=== PATIENT | male | born 1960 | race African-American/Black ===

== ENCOUNTER 2017-04-01 11:34 | Observation (INO) ==
[2017-04-01 14:23] LABS: Basophils % 0.3 % (0.0-0.8); Eosinophils # 0.1 10*3/uL (0.0-0.87); Eosinophils % 0.8 % (0.00-10.9); Hematocrit 38.6 VOL% (42.0-52.0); Hemoglobin 13.3 GM/DL (14.0-18.0); Immature Granulocytes % 0.8 %; Immature Granulocytes Absolute 0.09 #; Lymphocytes # 1.9 10*3/uL (1.4-4.0); Lymphocytes % 17.4 % (21.2-54.2); Mean Corpuscular HGB Conc 34.5 GM/DL (32-36); Mean Corpuscular Hemoglobin 31 PG (27-34); Mean Platelet Volume 10.6 FL (9.6-12.0); Monocytes # 1.1 10*3/uL (0.11-0.8); Monocytes % 9.8 % (1.7-12.7); Neutrophils # 7.7 10*3/uL (1.4-7.4); Neutrophils % 70.9 % (38.7-73.9); Platelet Count 178 T/CUMM (130-400); Red Blood Count 4.24 MC/CUMM (3.8-5.5); Red Cell Distribution Width 13.6 % (9.3-17.3); White Blood Count 10.8 T/CUMM (4-12)
[2017-04-01 14:47] LABS: Alanine Aminotransferase 31 U/L (16-61); Albumin 4.2 G/DL (3.4-5.0); Alkaline Phosphatase 107 U/L (45-117); Aspartate Amino Transferase 14 U/L (0-37); Bilirubin,Total < 0.39 MG/DL (0.2-1.0); Blood Urea Nitrogen 18 MG/DL (7-18); Calcium 9.3 MG/DL (8.5-10.1); Glucose 188 MG/DL (74-106); Osmolality,Calculated 285.4 MOS/KG (273-304); Sodium 140 MMOL/L (136-145); Total Protein 8.1 G/DL (6.4-8.3)
[2017-04-01 14:48] LABS: Troponin I Only < 0.015 NG/ML (0.00-0.045)
[2017-04-01] MEDS ORDERED: NICOTINE 21 MG/24 HR PATCH TRANSDERM PRN (17:46)
[2017-04-01] MEDS ORDERED: ACETAMINOPHEN 325 MG TABLET PO PRN (17:46)
[2017-04-01] MEDS ORDERED: MORPHINE 2 MG/1 ML SYRINGE IV PRN (17:46)
[2017-04-01] MEDS ORDERED: GLUCAGON 1 MG VIAL IM PRN (17:51)
[2017-04-01] MEDS ORDERED: ONDANSETRON 4 MG/2 ML VIAL IV PRN (17:51)
[2017-04-01] MEDS ORDERED: DEXTROSE 50% 25 GM/50 ML VIAL IV PRN (17:51)
[2017-04-01 18:27] LABS: Magnesium 1.5 MG/DL (1.8-2.4); Thyroid Stimulating Hormone 0.711 uIU/ml (0.358-3.74)
[2017-04-01] MEDS ORDERED: QUEtiapine 100 MG TABLET PO SCH ×2 (21:00)
[2017-04-01] MEDS ORDERED: FLUVOXAMINE MALEATE 100 MG PO SCH (21:00)
[2017-04-01] MEDS ORDERED: ATORVASTATIN 20 MG TABLET PO SCH (21:00)
[2017-04-01] MEDS: GABAPENTIN 100 MG CAPSULE PO SCH (21:22)
[2017-04-01] MEDS: MIRTAZAPINE 30 MG TABLET PO SCH (21:23)
[2017-04-01] MEDS: metFORMIN 500 MG TABLET PO SCH (21:23)
[2017-04-01] MEDS: QUEtiapine 100 MG TABLET PO SCH (21:23)
[2017-04-01] MEDS: cloNIDine 0.1 MG TABLET PO SCH (21:23)
[2017-04-01] MEDS: DOCUSATE SODIUM 100 MG CAPSULE PO SCH (21:23)
[2017-04-01] MEDS: CARVEDILOL 12.5 MG TABLET PO SCH (21:23)
[2017-04-01] MEDS: METOPROLOL SUCCINATE XL 100 MG TABLET PO SCH (21:23)
[2017-04-01] MEDS: buPROPion SR 150 MG TABLET PO SCH (21:23)
[2017-04-01] MEDS: INSULIN LISPRO 100 UNIT/ML SUBCUT SCH (22:30)
[2017-04-01] MEDS: POLYETHYLENE GLYCOL POWDER 17 GM PACK PO SCH (22:30)
[2017-04-02 01:17] LABS: Basophils % 0.2 % (0.0-0.8); Eosinophils # 0.1 10*3/uL (0.0-0.87); Eosinophils % 1.2 % (0.00-10.9); Hematocrit 32.3 VOL% (42.0-52.0); Hemoglobin 11.1 GM/DL (14.0-18.0); Immature Granulocytes % 0.5 %; Immature Granulocytes Absolute 0.05 #; Lymphocytes # 1.9 10*3/uL (1.4-4.0); Lymphocytes % 19.9 % (21.2-54.2); Mean Corpuscular HGB Conc 34.4 GM/DL (32-36); Mean Corpuscular Hemoglobin 31 PG (27-34); Mean Platelet Volume 11.1 FL (9.6-12.0); Monocytes # 1.1 10*3/uL (0.11-0.8); Neutrophils # 6.5 10*3/uL (1.4-7.4); Neutrophils % 67.2 % (38.7-73.9); Platelet Count 159 T/CUMM (130-400); Red Blood Count 3.55 MC/CUMM (3.8-5.5); Red Cell Distribution Width 13.4 % (9.3-17.3); White Blood Count 9.6 T/CUMM (4-12)
[2017-04-02 01:44] LABS: Calcium 8.6 MG/DL (8.5-10.1); Potassium 3.6 MMOL/L (3.5-5.1); Risk Ratio 2.42; VLDL CHOLESTEROL 15.8 MG/DL
[2017-04-02] MEDS ORDERED: MAGNESIUM SULF RIDER 2 GM in PREMIX 1 EACH IV PRN (09:28)
[2017-04-02] MEDS ORDERED: MAGNESIUM SULF RIDER 4 GM in PREMIX 1 EACH IV PRN (09:28)
[2017-04-02] MEDS: metFORMIN 500 MG TABLET PO SCH ×2 (10:13→21:16)
[2017-04-02] MEDS: amLODIPine 10 MG TABLET PO SCH (10:14)
[2017-04-02] MEDS: DULoxetine 30 MG CAPSULE PO SCH (10:14)
[2017-04-02] MEDS: buPROPion SR 150 MG TABLET PO SCH ×2 (10:14→21:16)
[2017-04-02] MEDS: DOCUSATE SODIUM 100 MG CAPSULE PO SCH ×2 (10:14→21:16)
[2017-04-02] MEDS: PANTOPRAZOLE 40 MG TABLET PO SCH (10:15)
[2017-04-02] MEDS: cloNIDine 0.1 MG TABLET PO SCH ×3 (10:15→21:17)
[2017-04-02] MEDS: QUEtiapine 100 MG TABLET PO SCH ×3 (10:15→21:17)
[2017-04-02] MEDS: POLYETHYLENE GLYCOL POWDER 17 GM PACK PO SCH ×2 (10:15→21:19)
[2017-04-02] MEDS: CARVEDILOL 12.5 MG TABLET PO SCH (10:15)
[2017-04-02] MEDS: GABAPENTIN 100 MG CAPSULE PO SCH ×3 (10:15→21:16)
[2017-04-02] MEDS: INSULIN LISPRO 100 UNIT/ML SUBCUT SCH ×4 (10:16→21:19)
[2017-04-02] MEDS ORDERED: FUROSEMIDE 40 MG/4 ML VIAL IV ONE (15:04)
[2017-04-02] MEDS ORDERED: NITROGLYCERIN SL 0.4 MG TABLET SL PRN (15:30)
[2017-04-02] MEDS: MIRTAZAPINE 30 MG TABLET PO SCH (21:16)
[2017-04-02] MEDS: ATORVASTATIN 80 MG TABLET PO SCH (21:17)
[2017-04-02] MEDS: METOPROLOL SUCCINATE XL 100 MG TABLET PO SCH (21:17)
[2017-04-03 06:36] LABS: Basophils % 0.5 % (0.0-0.8); Eosinophils # 0.2 10*3/uL (0.0-0.87); Eosinophils % 1.8 % (0.00-10.9); Hematocrit 33.4 VOL% (42.0-52.0); Hemoglobin 11.3 GM/DL (14.0-18.0); Immature Granulocytes % 0.8 %; Immature Granulocytes Absolute 0.07 #; Lymphocytes # 2.2 10*3/uL (1.4-4.0); Lymphocytes % 25.7 % (21.2-54.2); Mean Corpuscular HGB Conc 33.8 GM/DL (32-36); Mean Corpuscular Hemoglobin 31 PG (27-34); Mean Platelet Volume 10.4 FL (9.6-12.0); Monocytes # 1.1 10*3/uL (0.11-0.8); Monocytes % 13.5 % (1.7-12.7); Neutrophils # 4.8 10*3/uL (1.4-7.4); Neutrophils % 57.7 % (38.7-73.9); Platelet Count 161 T/CUMM (130-400); Red Blood Count 3.63 MC/CUMM (3.8-5.5); Red Cell Distribution Width 13.5 % (9.3-17.3); White Blood Count 8.4 T/CUMM (4-12)
[2017-04-03 07:03] LABS: Calcium 8.4 MG/DL (8.5-10.1); Osmolality,Calculated 287.1 MOS/KG (273-304); Potassium 3.9 MMOL/L (3.5-5.1)
[2017-04-03 07:07] LABS: Calcium 8.4 MG/DL (8.5-10.1); Magnesium 1.3 MG/DL (1.8-2.4); Osmolality,Calculated 287.1 MOS/KG (273-304); Potassium 3.9 MMOL/L (3.5-5.1); Risk Ratio 2.29; VLDL CHOLESTEROL 17.8 MG/DL
[2017-04-03] MEDS: INSULIN LISPRO 100 UNIT/ML SUBCUT SCH ×4 (08:43→22:07)
[2017-04-03] MEDS: QUEtiapine 100 MG TABLET PO SCH ×3 (08:44→22:06)
[2017-04-03] MEDS: ASPIRIN EC 81 MG TABLET PO SCH (08:44)
[2017-04-03] MEDS: GABAPENTIN 100 MG CAPSULE PO SCH ×3 (08:45→22:04)
[2017-04-03] MEDS: PANTOPRAZOLE 40 MG TABLET PO SCH (08:45)
[2017-04-03] MEDS: DULoxetine 30 MG CAPSULE PO SCH (08:45)
[2017-04-03] MEDS: cloNIDine 0.1 MG TABLET PO SCH (08:45)
[2017-04-03] MEDS: FUROSEMIDE 40 MG TABLET PO SCH (08:45)
[2017-04-03] MEDS: metFORMIN 500 MG TABLET PO SCH (08:45)
[2017-04-03] MEDS: amLODIPine 10 MG TABLET PO SCH (08:45)
[2017-04-03] MEDS: DOCUSATE SODIUM 100 MG CAPSULE PO SCH ×2 (08:46→22:06)
[2017-04-03] MEDS: POLYETHYLENE GLYCOL POWDER 17 GM PACK PO SCH ×2 (08:46→22:09)
[2017-04-03] MEDS: buPROPion SR 150 MG TABLET PO SCH ×2 (08:55→22:03)
[2017-04-03] MEDS ORDERED: LISINOPRIL 5 MG TABLET PO SCH (09:00)
[2017-04-03] MEDS ORDERED: MAGNESIUM SULF RIDER 2 GM in PREMIX 1 EACH IV ONE (15:06)
[2017-04-03] MEDS ORDERED: hydrALAZINE 25 MG TABLET PO SCH (21:00)
[2017-04-03] MEDS: MAGNESIUM OXIDE 400 MG TABLET PO SCH (22:04)
[2017-04-03] MEDS: MIRTAZAPINE 30 MG TABLET PO SCH (22:05)
[2017-04-03] MEDS: METOPROLOL SUCCINATE XL 100 MG TABLET PO SCH (22:05)
[2017-04-03] MEDS: ATORVASTATIN 80 MG TABLET PO SCH (22:05)
[2017-04-04 07:29] LABS: Calcium 8.8 MG/DL (8.5-10.1); Magnesium 1.8 MG/DL (1.8-2.4); Osmolality,Calculated 282.4 MOS/KG (273-304); Potassium 3.6 MMOL/L (3.5-5.1)
[2017-04-04] MEDS ORDERED: LISINOPRIL 10 MG TABLET PO SCH (09:00)
[2017-04-04] MEDS: INSULIN LISPRO 100 UNIT/ML SUBCUT SCH ×2 (09:15→13:14)
[2017-04-04] MEDS: PANTOPRAZOLE 40 MG TABLET PO SCH (09:16)
[2017-04-04] MEDS: DULoxetine 30 MG CAPSULE PO SCH (09:16)
[2017-04-04] MEDS: FUROSEMIDE 40 MG TABLET PO SCH (09:16)
[2017-04-04] MEDS: amLODIPine 10 MG TABLET PO SCH (09:16)
[2017-04-04] MEDS: POLYETHYLENE GLYCOL POWDER 17 GM PACK PO SCH (09:17)
[2017-04-04] MEDS: DOCUSATE SODIUM 100 MG CAPSULE PO SCH (09:17)
[2017-04-04] MEDS: ASPIRIN EC 81 MG TABLET PO SCH (09:17)
[2017-04-04] MEDS: MAGNESIUM OXIDE 400 MG TABLET PO SCH (09:17)
[2017-04-04] MEDS: QUEtiapine 100 MG TABLET PO SCH (09:17)
[2017-04-04] MEDS: buPROPion SR 150 MG TABLET PO SCH (09:17)
[2017-04-04] MEDS: GABAPENTIN 100 MG CAPSULE PO SCH ×2 (09:17→14:37)
[2017-04-04 11:59] VITALS: BP 168/100
== END 2017-04-04 17:10 | disposition home or self-care (01) ==
LOC: N.ED 11:34 → N.EDINP 11:34 → N.4E 18:37
PROVIDERS: ADMIT Hospitalist; ATTEND Hospitalist

== ENCOUNTER 2017-09-09 10:48 | Observation (INO) ==
[2017-09-09] MEDS ORDERED: ASPIRIN 325 MG TABLET PO STA (11:24)
[2017-09-09] MEDS ORDERED: MORPHINE 4 MG/1 ML VIAL IV STA (11:24)
[2017-09-09] MEDS ORDERED: ONDANSETRON 4 MG/2 ML VIAL IV STA (11:24)
[2017-09-09] MEDS ORDERED: NITROGLYCERIN 2% OINT 1 INCH/GM PACK TOP STA (11:24)
[2017-09-09 11:34] LABS: Basophils % 0.3 % (0.0-0.8); Eosinophils # 0.1 10*3/uL (0.0-0.87); Eosinophils % 0.7 % (0.00-10.9); Hematocrit 34.6 VOL% (42.0-52.0); Hemoglobin 12.2 GM/DL (14.0-18.0); Immature Granulocytes % 0.5 %; Immature Granulocytes Absolute 0.05 #; Lymphocytes # 1.7 10*3/uL (1.4-4.0); Lymphocytes % 18.4 % (21.2-54.2); Mean Corpuscular HGB Conc 35.3 GM/DL (32-36); Mean Corpuscular Hemoglobin 32 PG (27-34); Mean Corpuscular Volume 90.6 FL (87-102); Mean Platelet Volume 10.4 FL (9.6-12.0); Monocytes # 0.9 10*3/uL (0.11-0.8); Monocytes % 9.4 % (1.7-12.7); Neutrophils # 6.7 10*3/uL (1.4-7.4); Neutrophils % 70.7 % (38.7-73.9); Platelet Count 197 T/CUMM (130-400); Red Blood Count 3.82 MC/CUMM (3.8-5.5); White Blood Count 9.4 T/CUMM (4-12)
[2017-09-09 11:42] LABS: INR 0.9
[2017-09-09 11:58] LABS: Alanine Aminotransferase 31 U/L (16-61); Albumin 3.8 G/DL (3.4-5.0); Alkaline Phosphatase 84 U/L (45-117); Aspartate Amino Transferase 15 U/L (0-37); Bilirubin,Total < 0.39 MG/DL (0.2-1.0); Blood Urea Nitrogen 14 MG/DL (7-18); Calcium 8.6 MG/DL (8.5-10.1); Glucose 122 MG/DL (74-106); Osmolality,Calculated 278.5 MOS/KG (273-304); Potassium 4.3 MMOL/L (3.5-5.1); Sodium 139 MMOL/L (136-145); Total Protein 7.5 G/DL (6.4-8.3)
[2017-09-09] MEDS ORDERED: MAGNESIUM SULF RIDER 2 GM in PREMIX 1 EACH IV STA (12:42)
[2017-09-09] MEDS ORDERED: ENOXAPARIN 100 MG/ML SYRINGE SUBCUT STA (13:14)
[2017-09-09 13:26] LABS: Barbiturates Screen,Urine Negative (Negative); Benzodiazepines Screen,Urine Negative (Negative); Cannabinoid Screen,Urine Negative (Negative); Opiate Screen,Urine Positive (Negative); Phencyclidine Screen,Urine Negative (Negative)
[2017-09-09 13:27] LABS: Apearance,Urine CLEAR (Clear); Bilirubin,Urine Negative (Negative); Blood, Urine Negative (Negative); Glucose,Urine (UA) Negative (Negative); Hyaline Casts,Urine 1 /LPF (0-3); Ketones,Urine Negative (Negative); Mucus,Urine Occasional /LPF (Occasional); Nitrite,Urine Negative (Negative); Protein,Urine 30 MG/DL; RBC,Urine 1 /HPF (0-4); Urine Color Yellow (Yellow); Urine Specific Gravity 1.013 (1.001-1.035); Urine Urobilinogen < 2.0 EU/DL (0.2-1.0); WBC,Urine <1 /HPF (0-6)
[2017-09-09] MEDS ORDERED: ACETAMINOPHEN 325 MG TABLET PO PRN (13:53)
[2017-09-09] MEDS ORDERED: ONDANSETRON 4 MG/2 ML VIAL IV PRN (13:53)
[2017-09-09] MEDS ORDERED: diphenhydrAMINE CAP 25 MG CAPSULE PO PRN (13:53)
[2017-09-09] MEDS ORDERED: DOCUSATE SODIUM 100 MG CAPSULE PO PRN (13:53)
[2017-09-09] MEDS ORDERED: guaiFENesin/DM ER 600-30 MG TABLET PO PRN (13:53)
[2017-09-09] MEDS ORDERED: NICOTINE 21 MG/24 HR PATCH TRANSDERM PRN (13:53)
[2017-09-09] MEDS ORDERED: GLUCAGON 1 MG VIAL IM PRN (13:59)
[2017-09-09] MEDS ORDERED: DEXTROSE 50% 25 GM/50 ML VIAL IV PRN (13:59)
[2017-09-09] MEDS ORDERED: ENOXAPARIN 40 MG/0.4 ML SYRINGE SUBCUT SCH (14:00)
[2017-09-09] MEDS ORDERED: MIRTAZAPINE 30 MG TABLET PO PRN (14:05)
[2017-09-09] MEDS ORDERED: NITROGLYCERIN SL 0.4 MG TABLET SL PRN (14:05)
[2017-09-09] MEDS ORDERED: NICOTINE 14 MG/24 HR PATCH TRANSDERM PRN (15:30)
[2017-09-09] MEDS: PANTOPRAZOLE 40 MG TABLET PO SCH (16:23)
[2017-09-09] MEDS: DULoxetine 30 MG CAPSULE PO SCH (16:23)
[2017-09-09] MEDS: cloNIDine 0.1 MG TABLET PO SCH ×2 (16:23→21:25)
[2017-09-09] MEDS: amLODIPine 10 MG TABLET PO SCH (16:23)
[2017-09-09] MEDS: FUROSEMIDE 40 MG TABLET PO SCH (16:24)
[2017-09-09] MEDS ORDERED: GABAPENTIN 100 MG CAPSULE PO SCH ×2 (16:30→20:00)
[2017-09-09] MEDS: traMADol 50 MG TABLET PO SCH ×2 (17:24→21:25)
[2017-09-09] MEDS: ACETAMINOPHEN 325 MG TABLET PO SCH ×2 (17:25→21:25)
[2017-09-09] MEDS: INSULIN LISPRO 100 UNIT/ML SUBCUT SCH ×2 (17:25→21:28)
[2017-09-09] MEDS ORDERED: QUEtiapine 100 MG TABLET PO SCH (21:00)
[2017-09-09] MEDS ORDERED: METOPROLOL SUCCINATE XL 100 MG TABLET PO SCH (21:00)
[2017-09-09] MEDS: GABAPENTIN 300 MG CAPSULE PO SCH (21:26)
[2017-09-09] MEDS: MAGNESIUM CHLORIDE 64 MG TABLET PO SCH (21:46)
[2017-09-10 06:24] LABS: Basophils % 0.4 % (0.0-0.8); Eosinophils # 0.1 10*3/uL (0.0-0.87); Eosinophils % 1.3 % (0.00-10.9); Hematocrit 30.6 VOL% (42.0-52.0); Hemoglobin 10.3 GM/DL (14.0-18.0); Immature Granulocytes % 0.9 %; Immature Granulocytes Absolute 0.07 #; Lymphocytes # 1.8 10*3/uL (1.4-4.0); Lymphocytes % 24.7 % (21.2-54.2); Mean Corpuscular HGB Conc 33.7 GM/DL (32-36); Mean Corpuscular Hemoglobin 32 PG (27-34); Mean Corpuscular Volume 93.9 FL (87-102); Mean Platelet Volume 10.6 FL (9.6-12.0); Monocytes # 0.9 10*3/uL (0.11-0.8); Monocytes % 12.1 % (1.7-12.7); Neutrophils # 4.5 10*3/uL (1.4-7.4); Neutrophils % 60.6 % (38.7-73.9); Platelet Count 182 T/CUMM (130-400); Red Blood Count 3.26 MC/CUMM (3.8-5.5); Red Cell Distribution Width 12.8 % (9.3-17.3); White Blood Count 7.4 T/CUMM (4-12)
[2017-09-10 06:52] LABS: Troponin I Only 0.018 NG/ML (0.00-0.045)
[2017-09-10 06:58] LABS: Calcium 8.5 MG/DL (8.5-10.1); Osmolality,Calculated 278.4 MOS/KG (273-304); Potassium 4.1 MMOL/L (3.5-5.1); Risk Ratio 1.79; Thyroid Stimulating Hormone 0.657 uIU/ml (0.358-3.74); VLDL CHOLESTEROL 13.2 MG/DL
[2017-09-10] MEDS ORDERED: GLIMEPIRIDE 4 MG TABLET PO SCH (08:00)
[2017-09-10 08:23] VITALS: BP 107/73
[2017-09-10] MEDS ORDERED: GABAPENTIN 100 MG CAPSULE PO SCH (09:00)
[2017-09-10] MEDS ORDERED: ASPIRIN EC 81 MG TABLET PO SCH (09:00)
[2017-09-10] MEDS: traMADol 50 MG TABLET PO SCH (09:04)
[2017-09-10] MEDS: GABAPENTIN 300 MG CAPSULE PO SCH (09:04)
[2017-09-10] MEDS: FUROSEMIDE 40 MG TABLET PO SCH (09:04)
[2017-09-10] MEDS: buPROPion SR 150 MG TABLET PO SCH ×2 (09:04→12:36)
[2017-09-10] MEDS: PANTOPRAZOLE 40 MG TABLET PO SCH (09:05)
[2017-09-10] MEDS: DULoxetine 30 MG CAPSULE PO SCH (09:05)
[2017-09-10] MEDS: ACETAMINOPHEN 325 MG TABLET PO SCH (09:05)
[2017-09-10] MEDS: cloNIDine 0.1 MG TABLET PO SCH (09:05)
[2017-09-10] MEDS: MAGNESIUM CHLORIDE 64 MG TABLET PO SCH (09:05)
[2017-09-10] MEDS: amLODIPine 10 MG TABLET PO SCH (09:05)
[2017-09-10] MEDS: INSULIN LISPRO 100 UNIT/ML SUBCUT SCH (09:07)
== END 2017-09-10 13:00 | disposition home or self-care (01) ==
LOC: EDUNIT# → EDBD → N.EDINP 10:48 → N.ED 10:48 → N.TELEN 13:52
PROVIDERS: ADMIT Internal Medicine; ATTEND Internal Medicine

== ENCOUNTER 2022-06-03 13:12 | Inpatient (IN) ==
[2022-06-03 14:08] LABS: Basophils % 0.2 % (0.0-0.8); Eosinophils % 0.3 % (0.00-10.9); Hematocrit 34.2 VOL% (42.0-52.0); Hemoglobin 10.9 GM/DL (14.0-18.0); Immature Granulocytes % 0.5 %; Immature Granulocytes Absolute 0.07 #; Lymphocytes # 0.8 10*3/uL (1.4-4.0); Lymphocytes % 5.9 % (21.2-54.2); Mean Corpuscular HGB Conc 31.9 GM/DL (32-36); Mean Corpuscular Volume 92.2 FL (87-102); Monocytes # 1.3 10*3/uL (0.11-0.8); Monocytes % 9.4 % (1.7-12.7); Neutrophils % 83.7 % (38.7-73.9); Platelet Count 175 T/CUMM (130-400); Red Blood Count 3.71 MC/CUMM (3.8-5.5); Red Cell Distribution Width 16.8 % (9.3-17.3); White Blood Count 13.61 T/CUMM (4-12)
[2022-06-03 14:20] LABS: Albumin 3.8 G/DL (3.4-5.0); Bilirubin,Total 0.4 MG/DL (0.20-1.00); Calcium 9.2 MG/DL (8.5-10.1); Osmolality,Calculated 289.3 MOS/KG (273-304); Potassium 3.5 MMOL/L (3.5-5.1); Total Protein 7.8 G/DL (6.4-8.2)
[2022-06-03 14:46] LABS: Hyaline Casts,Urine 3 /LPF (0-3); Mucus,Urine Occasional /LPF (Occasional); RBC,Urine 5 /HPF (0-4)
[2022-06-03 14:47] LABS: Bilirubin,Urine Negative (Negative); Blood, Urine Trace mg/dL (Negative); Glucose,Urine (UA) Negative (Negative); Ketones,Urine Negative (Negative); Nitrite,Urine Negative (Negative); Protein,Urine 100 mg/dL (Negative); Urine Appearance Clear (Clear); Urine Color Yellow (Yellow); Urine Urobilinogen 0.2 eU/dL (<2.0); Urine pH 5.5 (4.5-8.0)
[2022-06-03 14:54] LABS: Barbiturates Screen,Urine Negative (Negative); Benzodiazepines Screen,Urine Negative (Negative); Cannabinoid Screen,Urine Negative (Negative); Opiate Screen,Urine Negative (Negative); Phencyclidine Screen,Urine Negative (Negative)
[2022-06-03] MEDS ORDERED: SODIUM CHLORIDE 0.9% 1,000 ML IV STA (15:19)
[2022-06-03] MEDS ORDERED: hydrALAZINE 20 MG/1 ML VIAL IV STA (15:32)
[2022-06-03] MEDS ORDERED: GLUCAGON 1 MG VIAL IM PRN (16:59)
[2022-06-03] MEDS ORDERED: NICOTINE 21 MG/24 HR PATCH TRANSDERM PRN (16:59)
[2022-06-03] MEDS ORDERED: ACETAMINOPHEN 325 MG TABLET PO PRN (16:59)
[2022-06-03] MEDS ORDERED: hydrALAZINE 20 MG/1 ML VIAL IV PRN (16:59)
[2022-06-03] MEDS ORDERED: ONDANSETRON 4 MG/2 ML VIAL IV PRN (16:59)
[2022-06-03] MEDS ORDERED: DEXTROSE 10% 250 ML BAG IV PRN (16:59)
[2022-06-03] MEDS ORDERED: MORPHINE 2 MG/1 ML SYRINGE IV PRN (16:59)
[2022-06-03] MEDS ORDERED: LACTULOSE 20 GM/30 ML UDCUP PO STA (17:04)
[2022-06-03] MEDS: LACTATED RINGERS 1,000 ML IV SCH (17:26)
[2022-06-03] MEDS ORDERED: carvediloL 12.5 MG TABLET PO SCH (21:00)
[2022-06-03] MEDS: ENOXAPARIN 30 MG/0.3 ML SYRINGE SUBCUT SCH (22:29)
[2022-06-03] MEDS: DOCUSATE SODIUM 100 MG CAPSULE PO SCH (22:29)
[2022-06-03] MEDS: ATORVASTATIN 20 MG TABLET PO SCH (22:29)
[2022-06-03] MEDS: INSULIN LISPRO 100 UNIT/ML SUBCUT SCH (22:29)
[2022-06-04 05:27] LABS: Basophils % 0.3 % (0.0-0.8); Eosinophils # 0.1 10*3/uL (0.0-0.87); Eosinophils % 1.2 % (0.00-10.9); Hematocrit 28.6 VOL% (42.0-52.0); Hemoglobin 9.1 GM/DL (14.0-18.0); Immature Granulocytes % 0.7 %; Immature Granulocytes Absolute 0.07 #; Lymphocytes # 1.4 10*3/uL (1.4-4.0); Lymphocytes % 14.6 % (21.2-54.2); Mean Corpuscular HGB Conc 31.8 GM/DL (32-36); Mean Corpuscular Volume 90.8 FL (87-102); Mean Platelet Volume 11.4 FL (9.6-12.0); Monocytes # 1.4 10*3/uL (0.11-0.8); Monocytes % 13.9 % (1.7-12.7); Neutrophils % 69.3 % (38.7-73.9); Platelet Count 148 T/CUMM (130-400); Red Blood Count 3.15 MC/CUMM (3.8-5.5); Red Cell Distribution Width 16.8 % (9.3-17.3); White Blood Count 9.84 T/CUMM (4-12)
[2022-06-04 05:51] LABS: Calcium 8.7 MG/DL (8.5-10.1); Osmolality,Calculated 285.3 MOS/KG (273-304); Potassium 3.2 MMOL/L (3.5-5.1); Thyroid Stimulating Hormone 0.358 uIU/ml (0.358-3.74); VLDL Cholesterol 17.2 MG/DL
[2022-06-04] MEDS: INSULIN LISPRO 100 UNIT/ML SUBCUT SCH ×4 (08:40→21:00)
[2022-06-04] MEDS: amLODIPine 10 MG TABLET PO SCH (08:56)
[2022-06-04] MEDS: ISOSORBIDE MONONITRATE 30 MG TABLET PO SCH (08:56)
[2022-06-04] MEDS: carvediloL 12.5 MG TABLET PO SCH ×2 (08:56→17:09)
[2022-06-04] MEDS: PANTOPRAZOLE 40 MG TABLET PO SCH (08:56)
[2022-06-04] MEDS: DOCUSATE SODIUM 100 MG CAPSULE PO SCH ×2 (08:56→20:51)
[2022-06-04] MEDS: LACTATED RINGERS 1,000 ML IV SCH ×3 (09:59→23:35)
[2022-06-04] MEDS: FLUTICASONE 50 MCG NASAL SPRAY 16 GM BOTTLE BOTH NARES SCH ×2 (15:58→20:51)
[2022-06-04] MEDS: ENOXAPARIN 30 MG/0.3 ML SYRINGE SUBCUT SCH (20:51)
[2022-06-04] MEDS: LUBIPROSTONE 8 MCG CAPSULE PO SCH (20:51)
[2022-06-04] MEDS: ATORVASTATIN 20 MG TABLET PO SCH (20:51)
[2022-06-04] MEDS: POLYETHYLENE GLYCOL POWDER 17 GM PACK PO SCH (20:59)
[2022-06-04] MEDS: buPROPion SR 100 MG TABLET PO SCH (21:00)
[2022-06-04] MEDS: traZODone 50 MG TABLET PO PRN (21:11)
[2022-06-05] MEDS: NITROGLYCERIN SL 0.4 MG TABLET SL PRN ×2 (03:53→04:05)
[2022-06-05 05:07] LABS: Basophils % 0.3 % (0.0-0.8); Eosinophils # 0.1 10*3/uL (0.0-0.87); Eosinophils % 1.8 % (0.00-10.9); Hematocrit 26.6 VOL% (42.0-52.0); Hemoglobin 8.9 GM/DL (14.0-18.0); Immature Granulocytes % 0.5 %; Immature Granulocytes Absolute 0.04 #; Lymphocytes # 0.6 10*3/uL (1.4-4.0); Lymphocytes % 7.9 % (21.2-54.2); Mean Corpuscular HGB Conc 33.5 GM/DL (32-36); Mean Corpuscular Volume 91.7 FL (87-102); Mean Platelet Volume 11.2 FL (9.6-12.0); Monocytes # 1.5 10*3/uL (0.11-0.8); Monocytes % 19.3 % (1.7-12.7); Neutrophils % 70.2 % (38.7-73.9); Platelet Count 124 T/CUMM (130-400); Red Cell Distribution Width 16.2 % (9.3-17.3); White Blood Count 7.62 T/CUMM (4-12)
[2022-06-05 05:28] LABS: Calcium 8.7 MG/DL (8.5-10.1); Osmolality,Calculated 277.7 MOS/KG (273-304); Potassium 3.4 MMOL/L (3.5-5.1)
[2022-06-05 05:35] LABS: Eosinophils 1 % (0-10); Lymphocytes 5 % (20-55); Microcytosis Slight; Ovalocytes Slight; Total Cells Counted 100
[2022-06-05] MEDS: INSULIN LISPRO 100 UNIT/ML SUBCUT SCH ×4 (07:27→21:00)
[2022-06-05] MEDS: LINACLOTIDE 145 MCG CAPSULE PO SCH (07:59)
[2022-06-05] MEDS: carvediloL 12.5 MG TABLET PO SCH ×2 (07:59→16:43)
[2022-06-05] MEDS ORDERED: buPROPion SR 150 MG TABLET PO SCH (08:00)
[2022-06-05] MEDS: ASPIRIN EC 81 MG TABLET PO SCH (08:00)
[2022-06-05] MEDS: LUBIPROSTONE 8 MCG CAPSULE PO SCH ×2 (08:00→21:06)
[2022-06-05] MEDS: DOCUSATE SODIUM 100 MG CAPSULE PO SCH ×2 (08:00→21:09)
[2022-06-05] MEDS: DULoxetine 30 MG CAPSULE PO SCH (08:00)
[2022-06-05] MEDS: ISOSORBIDE MONONITRATE 30 MG TABLET PO SCH (08:00)
[2022-06-05] MEDS: FLUTICASONE 50 MCG NASAL SPRAY 16 GM BOTTLE BOTH NARES SCH (08:01)
[2022-06-05] MEDS: POLYETHYLENE GLYCOL POWDER 17 GM PACK PO SCH ×2 (08:03→21:09)
[2022-06-05] MEDS: buPROPion SR 100 MG TABLET PO SCH ×2 (08:05→21:06)
[2022-06-05] MEDS: PANTOPRAZOLE 40 MG TABLET PO SCH (08:05)
[2022-06-05] MEDS: amLODIPine 10 MG TABLET PO SCH (08:05)
[2022-06-05] MEDS: LACTATED RINGERS 1,000 ML IV SCH (08:08)
[2022-06-05] MEDS ORDERED: carvediloL 12.5 MG TABLET PO SCH (09:00)
[2022-06-05] MEDS ORDERED: POTASSIUM CHLORIDE 20 MEQ TABLET PO ONE (15:00)
[2022-06-05] MEDS: ATORVASTATIN 20 MG TABLET PO SCH (21:06)
[2022-06-05] MEDS: ENOXAPARIN 30 MG/0.3 ML SYRINGE SUBCUT SCH (21:06)
[2022-06-06 06:31] LABS: Basophils % 0.3 % (0.0-0.8); Eosinophils # 0.1 10*3/uL (0.0-0.87); Eosinophils % 0.8 % (0.00-10.9); Hematocrit 26.5 VOL% (42.0-52.0); Hemoglobin 8.7 GM/DL (14.0-18.0); Immature Granulocytes % 0.6 %; Immature Granulocytes Absolute 0.04 #; Lymphocytes # 0.7 10*3/uL (1.4-4.0); Lymphocytes % 9.5 % (21.2-54.2); Mean Corpuscular HGB Conc 32.8 GM/DL (32-36); Mean Corpuscular Volume 91.4 FL (87-102); Mean Platelet Volume 10.8 FL (9.6-12.0); Monocytes # 1.7 10*3/uL (0.11-0.8); Neutrophils % 64.8 % (38.7-73.9); Platelet Count 119 T/CUMM (130-400); Red Cell Distribution Width 15.7 % (9.3-17.3); White Blood Count 7.24 T/CUMM (4-12)
[2022-06-06 06:51] LABS: Calcium 8.9 MG/DL (8.5-10.1); Osmolality,Calculated 275.7 MOS/KG (273-304); Potassium 3.8 MMOL/L (3.5-5.1)
[2022-06-06 07:03] LABS: Eosinophils 1 % (0-10); Lymphocytes 8 % (20-55); Total Cells Counted 100
[2022-06-06 07:04] LABS: Hypochromia Slight
[2022-06-06] MEDS: LACTATED RINGERS 1,000 ML IV SCH ×2 (07:26→15:31)
[2022-06-06] MEDS: INSULIN LISPRO 100 UNIT/ML SUBCUT SCH ×4 (07:27→20:44)
[2022-06-06] MEDS: LINACLOTIDE 145 MCG CAPSULE PO SCH (08:46)
[2022-06-06] MEDS: LUBIPROSTONE 8 MCG CAPSULE PO SCH ×2 (08:47→20:45)
[2022-06-06] MEDS: ASPIRIN EC 81 MG TABLET PO SCH (08:47)
[2022-06-06] MEDS: ISOSORBIDE MONONITRATE 30 MG TABLET PO SCH (08:47)
[2022-06-06] MEDS: DULoxetine 30 MG CAPSULE PO SCH (08:47)
[2022-06-06] MEDS: carvediloL 12.5 MG TABLET PO SCH ×2 (08:47→17:19)
[2022-06-06] MEDS: FLUTICASONE 50 MCG NASAL SPRAY 16 GM BOTTLE BOTH NARES SCH (08:47)
[2022-06-06] MEDS: POLYETHYLENE GLYCOL POWDER 17 GM PACK PO SCH ×2 (08:47→20:46)
[2022-06-06] MEDS: DOCUSATE SODIUM 100 MG CAPSULE PO SCH ×2 (08:47→21:43)
[2022-06-06] MEDS: PANTOPRAZOLE 40 MG TABLET PO SCH (08:48)
[2022-06-06] MEDS: amLODIPine 10 MG TABLET PO SCH (08:48)
[2022-06-06] MEDS: buPROPion SR 100 MG TABLET PO SCH ×2 (08:48→21:43)
[2022-06-06] MEDS: hydrALAZINE 25 MG TABLET PO SCH (21:42)
[2022-06-06] MEDS: ATORVASTATIN 20 MG TABLET PO SCH (21:43)
[2022-06-06] MEDS: ENOXAPARIN 30 MG/0.3 ML SYRINGE SUBCUT SCH (21:44)
[2022-06-06] MEDS: traZODone 50 MG TABLET PO PRN (23:31)
[2022-06-07] MEDS: ASPIRIN EC 81 MG TABLET PO SCH (09:44)
[2022-06-07] MEDS: buPROPion SR 100 MG TABLET PO SCH (09:44)
[2022-06-07] MEDS: PANTOPRAZOLE 40 MG TABLET PO SCH (09:44)
[2022-06-07] MEDS: carvediloL 12.5 MG TABLET PO SCH (09:44)
[2022-06-07] MEDS: hydrALAZINE 25 MG TABLET PO SCH (09:44)
[2022-06-07] MEDS: amLODIPine 10 MG TABLET PO SCH (09:44)
[2022-06-07] MEDS: DULoxetine 30 MG CAPSULE PO SCH (09:44)
[2022-06-07] MEDS: ISOSORBIDE MONONITRATE 30 MG TABLET PO SCH (09:44)
[2022-06-07] MEDS: LINACLOTIDE 145 MCG CAPSULE PO SCH (09:46)
[2022-06-07] MEDS: INSULIN LISPRO 100 UNIT/ML SUBCUT SCH ×2 (09:46→12:01)
[2022-06-07] MEDS: LUBIPROSTONE 8 MCG CAPSULE PO SCH (09:47)
[2022-06-07] MEDS: POLYETHYLENE GLYCOL POWDER 17 GM PACK PO SCH (09:48)
[2022-06-07] MEDS: DOCUSATE SODIUM 100 MG CAPSULE PO SCH (09:48)
[2022-06-07] MEDS: FLUTICASONE 50 MCG NASAL SPRAY 16 GM BOTTLE BOTH NARES SCH (09:48)
[2022-06-07] MEDS ORDERED: DOXYCYCLINE HYCLATE 100 MG CAPSULE PO SCH (11:00)
[2022-06-07 12:12] VITALS: BP 133/84
== END 2022-06-07 13:36 | disposition home health service (06) | DRG 682 ==
LOC: N.ED 13:12 → N.3E 18:48 → SUATTDRO 18:48 → N.3E 19:52
PROVIDERS: ADMIT Family Medicine; ATTEND Hospitalist